=== PATIENT | female | born 1965 | race Caucasian/White ===

== ENCOUNTER 2025-04-09 14:23 | Outpatient (AMB) | payer OTHER, SELFPAY ==
--- NOTE | 2025-04-09 14:50 | A.OFFPC_ITS ---
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 Control Analyst Required: No Accompanied by: Self / Same As Patient Allergies seasonal Allergy (Unknown, Uncoded 01/26/19 00:00) Medication List - Last Reconciled 04/09/25 by Leobardo Leung MD almotriptan malate 6.25 mg orally; amlodipine 5 mg PO DAILY atenolol 25 mg PO DAILY atorvastatin 20 mg PO BEDTIME carbamide peroxide 6.5% (Debrox) 5 drps otic (ears) Q12H 4 days cetirizine 10 mg PO DAILY PRN fluticasone propionate 50 mcg/actuation 2 sprays intranasal BID levothyroxine 100 mcg PO DAILY potassium chloride ER 10 mEq PO DAILY spironolactone 50 mg PO DAILY Tobacco use date assessed: 04/09/25 Dental Screening Dental Screen Date: 04/09/25 Did you have a dental visit in the last 12 months?: Yes Did you have a dental problem in the last 6 months where you did not have access to dental care?: Yes Was dental information given to patient?: Patient has dentist HPI HPI Comments History of Present Illness Details History of Present Illness The patient is a 59 year old female presenting to establish care and request medication refills. Migraine: The patient has a history of migraines for over 10 years, managed with almotriptan. Her migraines are reportedly well-controlled with the medication, and she has never seen a neurologist for this condition. Hypertension: The patient has a history of hypertension, managed with amlodipine 5 mg and atenolol. Previously, she was on hydrochlorothiazide for years, which caused hypokalemia. In August, her diuretic was switched to spironolactone, a potassium- sparing diuretic, and she was also prescribed potassium chloride supplements. Hyperlipidemia: The patient is treated for hyperlipidemia with atorvastatin. Hypothyroidism: She has a history of postsurgical hypothyroidism following a thyroidectomy approximately seven years ago. She is managed with levothyroxine, which she takes at 6:30 AM. Her last TSH level was checked in November. Allergies: The patient treats allergies with cetirizine and fluticasone nasal spray. She also has a known allergy to amoxicillin, which causes a rash. History of Lipomas: The patient has a history of lipomas on her upper arms and lower extremities. She has had three surgical procedures to remove them. Health Maintenance: The patient's last blood work was in November, four months ago. She is scheduled for a mammogram and ultrasound next month. Her last colonoscopy was 10 years ago with no findings, and she is due for another one next year. She recently had a Pap smear. A DEXA scan was recommended by her previous provider in the summer due to her age, but a referral was never sent. Surgical History: - Thyroidectomy (approximately 7 years a go) - Lipoma removal (12 removed ) Medications: - Almotriptan, as needed for migraine he adaches - Amlodipine 5 mg for hypertension - Atenolol for hypertension - Atorvastatin for hypercholesterolemia - Cetirizine for allergies - Fluticasone nasal spray for allergies - Levothyroxine for hypothyroidism - Spironolactone for hypertension - Potassium chloride extended release fo r hypokalemia Social History: - Tobacco use: Denies history of smoking . - Substance use: Denies use of recreatio nal drugs. Family History: - Her daughter is a breast cancer surviv or. Diagnostic Results: - Last blood work was performed in . - Last TSH was checked in November. - Last colonoscopy 10 years ago was collette al. Past Medical History - Migraine, managed with almotriptan for over 10 years. - Hypertension, managed with amlodipine and atenolol. - Hyperlipidemia, managed with atorvasta tin. - Allergic rhinitis, treated with cetiri zine and fluticasone. - Hypothyroidism, secondary to thyroidec ana luisa about 7 years ago, managed with levothyroxine. - History of hypokalemia, previously francisco ated with hydrochlorothiazide, now on spironolactone and potassium chloride. - History of lipomas on upper arms and l ower extremities, with three surgical removals. - Allergy to amoxicillin, causing a rash . Health Maintenance - Breast cancer screening: Patient is sc heduled for a mammogram and ultrasound next month. - Colon cancer screening: Last colonosco py was 10 years ago and was negative; she is due next year. - Cervical cancer screening: Patient rec ently had a Pap smear and is up to date. - Osteoporosis screening: A DEXA scan wa s previously recommended due to her age but was not completed. [facility] Medical History (Updated 04/09/25 @ 19:59 by Leobardo Leung MD) Morbid obesity due to excess calories History of lipoma Allergies Hypothyroid Hyperlipidemia Hypertension Migraine Family History (Updated 04/09/25 @ 15:03 by Patricio Maddox MA) Father Colon cancer Heart disease Mother Metastatic cancer Social History Housing: Condominium Patient Tobacco Use Status: Never used Tobacco service: No Current occupational status: employed Cognitive needs: No Hearing needs: No Vision needs: Yes (reading glasses) Questionnaire PHQ-9 Over the last 2 weeks, how often have you been bothered by any of the following problems? 1. Little interest or pleasure in doing things: not at all 2. Feeling down, depressed, or hopeless: not at all 3. Trouble falling or staying asleep, or sleeping too much: not at all 4. Feeling tired or having little energy: not at all 5. Poor appetite or overeating: not at all 6. Feeling bad about yourself - or that you are a failure or have let yourself or your family down: not at all 7. Trouble concentrating on things, such as reading the newspaper or watching television: not at all 8. Moving or speaking so slowly that other people could have noticed. Or the opposite - being so fidgety or restless that you have been moving around a lot more than usual: not at all 9. Thoughts that you would be better off or of hurting yourself in some way: not at all Total score: 0 Depression Screening Interpretation: Negative Depression Screening Done: Yes Source: Developed by Drs. Alberto Orozco, Linda Cedillo, Josr Carrion and colleagues, with an educational armani from [employer]. Thrive Questionnaire Date Thrive assessed: 04/09/25 I am a: Patient What is your living situation today?: I have a steady place to live Within the past 12 months, did the food you bought not last and you didn't have the money to get more?: Never true Within the past 12 months, did you worry whether your food would run out before you got money to buy more?: Never true Do you have trouble paying for medicines?: No Do you have trouble getting transportation to medical appointments?: No Do you have trouble paying your heating and electricity bill?: No Do you have trouble taking care of your child, family member or friend?: I choose not to answer this question Do you have trouble with day-to-day activities such as bathing, preparing meals, shopping, managing finances, etc.?: No Are you currently unemployed and looking for a job?: No Are you interested in more education?: No Please select the resources that you would like help with: None Currently or been in a relationship where the following occur: No concerns reported THRIVE Score: 0 AUDIT C Alcohol Use Questionnaire (AUDIT-C) 1. How often do you have a drink containing alcohol?: Never Total Score: 0 VALORIE-7 AMB Questionnaire VALORIE-7 Date VALORIE - 7 assessed: 04/09/25 Feeling nervous, anxious, or on edge: 0 = Not at all Not being able to stop or control worryin = Not at all Worrying too much about different things: 0 = Not at all Trouble relaxin = Not at all Being so restless that it is hard to sit still: 0 = Not at all Becoming easily annoyed or irritable: 0 = Not at all Feeling afraid as if something awful might happen: 0 = Not at all Total VALORIE-7 score (0-4 normal; 5-9 mild; 10-14 moderate; 15-21 severe): 0 Source: Developed by Drs. Alberto Orozco, Linda Cedillo, Josr Carrion and colleagues, with an educational armani from [employer]. Review of Systems Narrative Review of Systems - Constitutional: Reports sleeping well and waking up refreshed. - Neurological: Reports history of migraines, which are controlled with medication. - GI: Reports regular daily bowel movements. - : Reports being postmenopausal. Denies pain during abdominal exam. - Musculoskeletal: Denies swelling of her lower legs, but reports it can occur with tight socks. 10-point ROS reviewed and negative except as noted in HPI Physical exam (Primary Care) Vital Signs: Last Vital Signs Temp 98 F 04/09/25 14:53 Pulse 62 04/09/25 14:53 Resp 16 04/09/25 14:53 BP 139/60 04/09/25 14:53 Pulse Ox 98 04/09/25 14:53 Oxygen Delivery Method Room Air 04/09/25 14:53 BMI result Body Mass Index 46.2 Tobacco/Smoking Status: Tobacco use Status Tobacco use date assessed 04/09/25 04/09/25 15:06 Patient Tobacco Use Status Never used Tobacco 04/09/25 15:06 PHQ-9: PHQ-9 Score PHQ-9: Total score 0 04/09/25 16:14 Depression Screening Interpretation: Negative Thrive Assessment: Date of Thrive Assessment Date Thrive assessed 04/09/25 04/09/25 15:06 Currently or been in a relationship where the following occur: No concerns reported Narrative Physical Exam General: Well-appearing, in no acute distress. Vital signs: Within normal limits. HEENT: Normocephalic, atraumatic. PERRLA, EOMI. Conjunctiva clear, sclera anicteric. Oropharynx clear, mucous membranes moist. TMs intact bilaterally, but there is a lot of wax in one ear and a little in the other. Neck: Supple, no lymphadenopathy, no thyromegaly, no JVD or carotid bruits. Cardiovascular: RRR, normal S1/S2, no murmurs, rubs, or gallops. Peripheral pulses 2+ and symmetric. No edema. Respiratory: Lungs clear to auscultation bilaterally, no wheezes, rales, or rhonchi. Normal effort. Abdomen: Soft, non-tender, non-distended. Normoactive bowel sounds. No hepatosplenomegaly, no masses. MSK: Full range of motion, no joint swelling or deformity. Normal gait. Skin: Warm, dry, intact. No rashes, lesions, or pallor. Noted a mole that has been present since and has not changed in size. Neuro: Alert and oriented x3. Cranial nerves II-XII intact. Strength 5/5 throughout. Sensation intact. Reflexes 2+ symmetric. Normal coordination and gait. Psych: Appropriate mood and affect. Normal judgment and insight. Coding Level of Care Code New Pt Level 4 (69760) Add On Problem Visit Only Diagnoses Migraine G43.909 Hypertension I10 Hyperlipidemia E78.5 Hypothyroid E03.9 Allergies T78.40XA History of lipoma Z86.018 Morbid obesity due to excess calories E66.01 Assessment & Plan Assessment & Plan (1) Migraine: Code(s): G43.909 - Migraine, unspecified, not intractable, without status migrainosus Category: Medical (2) Hypertension: Code(s): I10 - Essential (primary) hypertension Category: Medical (3) Hyperlipidemia: Code(s): E78.5 - Hyperlipidemia, unspecified Category: Medical (4) Hypothyroid: Code(s): E03.9 - Hypothyroidism, unspecified Category: Medical (5) Allergies: Code(s): T78.40XA - Allergy, unspecified, initial encounter Category: Medical (6) History of lipoma: Code(s): Z86.018 - Personal history of other benign neoplasm Category: Medical (7) Morbid obesity due to excess calories: Code(s): E66.01 - Morbid (severe) obesity due to excess calories Category: Medical Plan Consent Patient was informed and verbally consented to the use of an ambient scribe for clinic note documentation during this visit. Plan 1. Establishing Care/Medication Management - Will refill amlodipine and other blood pressure medications, excluding spironolactone and potassium until lab results are reviewed. - Levothyroxine refill will be held pending review of TSH results. - Will refill almotriptan for migraines and allergy medications (cetirizine, fluticasone). - Ordered comprehensive baseline blood work, including CBC, CMP, thyroid panel, HbA1c, lipid panel, vitamin B12, folate, vitamin D, hepatitis B, hepatitis C, and a syphilis screen. - Plan to schedule a follow-up appointment in two weeks to discuss lab results. 2. Cerumen Impaction - Prescribed Debrox ear drops to be used twice a day, with five drops in each e ar for five days, to break up cerumen. Discussion Notes I discussed with the patient and her daughter that as a new patient, it is important to establish a baseline of her overall health. I explained that I am ordering comprehensive blood work, including a complete blood count, comprehensive metabolic panel, thyroid panel, HbA1c, lipid panel, and various vitamin and infectious disease screenings. I informed them that I will refill her blood pressure medication (amlodipine) but will hold off on refilling the spironolactone, potassium, and levothyroxine until I can review the new lab results, as it is critical to confirm her current thyroid and electrolyte levels before continuing these medications. We discussed that her maintenance screenings are up to date. I also informed her of the significant wax in her ears and prescribed Debrox drops, instructing her to use five drops in each ear, twice a day for five days. We agreed to a follow-up visit in two weeks to discuss all results. The patient's daughter was instructed that she can reach out via the patient portal for follow-up on the lab results. Patient Instructions - Please go to the lab to have your blood drawn today for the tests that were ordered. - For the wax in your ears, use the Debrox drops that were prescribed. Place 5 drops in your right ear and 5 drops in your left ear, two times per day, for the next five days. - Your prescriptions for amlodipine, almotriptan (for migraine), and allergy medications will be refilled. Do not take spironolactone, potassium, or levothyroxine until we have your lab results. I will send those refills after reviewing your blood tests. - Your daughter can contact our office through the patient portal to follow up on the lab results. - Please schedule a follow-up appointment in two weeks to review your lab results. - Remember to go for your scheduled mammogram and ultrasound next month. Medical Decision Making The patient is a 59-year-old female presenting to [facility] after her previous primary care physician retired. The primary goals of this visit are to address her need for medication refills and to establish a baseline of her current health status, as I do not have access to her prior medical records. Given her multiple chronic conditions including hypertension, hypothyroidism, and hyperlipidemia, and the lack of recent lab data, comprehensive blood work is medically necessary to ensure safe and effective management. The decision to withhold refills for levothyroxine, spironolactone, and potassium is based on the need to verify her TSH and electrolyte levels to prevent potential adverse effects from incorrect dosing, which is a prudent step in the absence of recent lab results. The patient reports her conditions are stable, but objective data is required for confirmation. On physical exam, there is significant bilateral cerumen impaction, which warrants treatment with cerumenolytic drops to improve hearing and allow for future proper examination. The remainder of the physical exam is unremarkable. Her preventative health screenings appear to be mostly up-to-date, though a DEXA scan was mentioned by her previous provider her current Osteoporosis Risk Assessment Instrument.score is less than 9 thus making her a low risk for Osteoporosis at this time. The plan is to review lab results and then finalize medication management, with a follow-up in two weeks to discuss the comprehensive health assessment. Total Time Statement 30 min Total time spent caring for the patient today includes pre-visit chart review, documentation, review of laboratory and diagnostic imaging results, medication reconciliation, medically necessary evaluation, counseling on diagnoses, care coordination, ordering appropriate tests and medications, review of tests performed by other providers, reporting test results to the patient, and communication with other healthcare providers. Orders: Orders Hepatitis C Antibody Today Z13.9 - Encounter for screening, unspecified HIV Ab/Ag Today Z13.9 - Encounter for screening, unspecified UA CC w/rflx Micro + Cult Today Z13.9 - Encounter for screening, unspecified Lipid Panel Today Z13.9 - Encounter for screening, unspecified Vitamin B12 and Folate Today Z13.9 - Encounter for screening, unspecified Magnesium Today Z13.9 - Encounter for screening, unspecified Complete Blood Count Auto Diff Today Z13.9 - Encounter for screening, unspecified Hepatitis B Surface Antigen Today Z13.9 - Encounter for screening, unspecified Syphilis Screen Today Z13.9 - Encounter for screening, unspecified Comprehensive Met. Panel Today Z13.9 - Encounter for screening, unspecified TSH reflex Free T4 Today Z13.9 - Encounter for screening, unspecified Hemoglobin A1c Today Z13.9 - Encounter for screening, unspecified Vitamin D 1,25 dihydroxy Today Z13.9 - Encounter for screening, unspecified Hepatitis B Surface Antibody Today Z13.9 - Encounter for screening, unspecified Vitamin D 25-OH (D2 and D3) Today Z13.9 - Encounter for screening, unspecified Medications: New amlodipine 5 mg PO DAILY 90 tabs 0RF carbamide peroxide 6.5% (Debrox) 5 drps otic (ears) Q12H 15 mL 0RF 4 days almotriptan malate 6.25 mg orally; 30 tabs 0RF atorvastatin 20 mg PO BEDTIME 90 tabs 0RF cetirizine 10 mg PO DAILY PRN 90 tabs 0RF allergy symptoms
[2025-04-09 14:53] VITALS: BP 139/60; PULSE 62; RESP 16; TEMP 36.6; O2SAT 98; BMI 46.2
== END 2025-04-09 15:57 | disposition home or self-care (01) ==
PROVIDERS: PCP Student in an Organized Health Care Education/Training Program; Visit Provider Student in an Organized Health Care Education/Training Program
DX: G43.909 Migraine, unspecified, not intractable, without status migrainosus (principal); I10 Essential (primary) hypertension; E78.5 Hyperlipidemia, unspecified; E03.9 Hypothyroidism, unspecified; T78.40XA Allergy, unspecified, initial encounter; Z86.018 Personal history of other benign neoplasm; E66.01 Morbid (severe) obesity due to excess calories

== ENCOUNTER 2025-04-09 14:23 | Outpatient (REF) | payer OTHER, SELFPAY ==
[2025-04-09 18:19] LABS: MANUAL DIFF FLAG NO
[2025-04-09 18:20] LABS: Appearance Urine Turbid; Glucose Urine UA Negative (Negative); PH 5.0 (5.0-9.0); Specific Gravity - Urine 1.020 (1.005-1.025); UMIC TRIGGER UACC YES
[2025-04-09 18:27] LABS: UACC Culture Trigger YES
[2025-04-09 18:29] LABS: Hematocrit 45.5 % (37.0-47.0); Hemoglobin 15.3 g/dl (12.0-16.0); Imm Gran Abs Auto 0.03 X10*3/uL (0.00-0.03); Imm Gran Pct Auto 0.3 % (0.0-0.4); Lymphocytes Absolute Auto 2.2 X10*3/uL (1.2-4.9); Mean Corpuscular HGB Conc 33.6 g/dl (31.0-35.0); Mean Corpuscular Hemoglobin 32.1 pg (27.0-33.0); Mean Corpuscular Volume 95.4 fL (80.0-98.0); NRBC Abs Auto 0.000 X10*3/uL (0.0-0.012); NRBC Pct Auto 0.0 /100WBC (0.0-0.2); Platelet Count 229 X10*3/uL (160-400); Red Blood Count 4.77 X10*6/uL (4.20-5.50); White Blood Count 10.9 X10*3/uL (4.8-10.8)
[2025-04-09 18:52] LABS: Alanine Aminotransferase 12 U/L (0-31); Albumin Level 4.9 g/dL (3.5-5.0); Alkaline Phosphatase 65 U/L (39-117); Anion Gap 12 (12-20); Aspartate Amino Transferase 32 U/L (5-31); Blood Urea Nitrogen 22 mg/dL (9-16); Calcium 9.6 mg/dL (8.4-10.2); Carbon Dioxide 24 mmol/L (22-29); Chloride 109 mmol/L (96-108); Cholesterol 160 mg/dL (<200); Estimated Glomerular Filt Rate > 60; HDL Cholesterol 56 mg/dL (>40); Magnesium 2.1 mg/dL (1.6-2.6); Potassium 4.1 mmol/L (3.3-5.1); Sodium 141 mmol/L (135-145); Total Protein 7.7 g/dL (6.5-8.0); Triglycerides 130 mg/dL (<150)
[2025-04-09 19:44] LABS: Folate 6.3 ng/mL (> or = 4.0); Vitamin B12 330 pg/mL (200-900)
[2025-04-10 04:25] LABS: Syphilis Screen Nonreactive (Nonreactive)
[2025-04-10 05:22] LABS: HBS Num1 176.38 mIU/mL (0-7.99); HBsAGNum1 0.46 S/CO (0.00-0.99); HIV Num 1 0.06 S/CO (0.00-0.99); Hepatitis B Surface Antigen Negative (Negative); ~HepC Num1 0.15 S/CO (0.00-0.79); ~Hepatitis B Surface Antibody REACTIVE (Nonreactive); ~Hepatitis C Antibody Nonreactive (Nonreactive)
[2025-04-13 06:34] LABS: Vitamin D 25-OH, D2 18 ng/mL; Vitamin D 25-OH, D3 10 ng/mL; Vitamin D 25-OH, Total 28 ng/mL (30-100)
[2025-04-13 16:29] LABS: VITAMIN D (1,25 OH) D3 13 pg/mL; Vit D (1,25-Dihydroxy) Total 39 pg/mL (18-72); Vitamin D (1,25 OH) D2 26 pg/mL
== END 2025-04-09 14:24 | disposition home or self-care (01) ==
LOC: HO.HKASLDS 14:23
PROVIDERS: PCP Student in an Organized Health Care Education/Training Program; Visit Provider Student in an Organized Health Care Education/Training Program
DX: G43.909 Migraine, unspecified, not intractable, without status migrainosus (principal); Z13.9 Encounter for screening, unspecified; I10 Essential (primary) hypertension; E78.5 Hyperlipidemia, unspecified; E03.9 Hypothyroidism, unspecified; E66.01 Morbid (severe) obesity due to excess calories; T78.40XA Allergy, unspecified, initial encounter; Z68.42 Body mass index [BMI] 45.0-49.9, adult
CPT/HCPCS: 36415; 80053; 80061; 81001; 82306; 82607; 82652; 82746; 83036; 83735; 84443; 85025; 86706; 86780; 86803; 87086; 87340; 87389

== ENCOUNTER 2025-04-17 14:19 | Outpatient (AMB) | payer OTHER, SELFPAY ==
--- NOTE | 2025-04-17 14:23 | AM.OFFWIN_ITS ---
Intake Vital Signs 04/17/25 14:24 Height 5 ft 3.78 in Weight 235 lb BMI 40.6 BP 136/67 Blood Pressure Location Lt brachial Position Sitting Respiration 16 Pulse 73 Pulse Source Pulse Oximeter Temp 97.9 F Temp Source Oral Pulse Oximetry (%) 98 Oxygen Delivery Method Room Air Intake Visit Reasons: EP- ?URI Intake Note: EP has Cough, runny nose, fever, sneezing, shoulder joint pain started last Wednesday and she got pain over the maxilla and frontal sinuses and sore throat since Wednesday. Patient Tobacco Use Status: Never used Tobacco Allergies amoxicillin Allergy (Intermediate, Verified 04/17/25 14:36) rash seasonal Allergy (Mild, Uncoded 04/17/25 14:36) Sneezing Do you need a note to return to daycare/school/sports/work: No HPI HPI Comments History of Present Illness Details History of Present Illness The patient is a 59 year old female with a past medical history of hyperlipidemia, hypertension, hypothyroidism presenting with worsening upper respiratory symptoms. - The patient reports becoming ill great er than one week ago - Her symptoms include cough, sneezing, runny nose, low-grade fever up to 100?F, and joint pain - She initially treated her symptoms wit h [id number] Robitussin, Tylenol, and ibuprofen. - After feeling better on Wednesday, her symptoms worsened on Wednesday with new onset sneezing and facial pain over her cheeks. - Current symptoms include discolored na abi discharge, a dry cough, and a scratchy sensation in her throat. - She denies any nausea, vomiting, or di arrhea. - She denies any shortness of breath - The patient reports a sensation of marion ffed ears with popping when she swallows, sneezes, or yawns. - The patient reports an allergy to amox icillin. Review of Systems - Constitutional: Reports a low-grade fe miranda up to 100?F. - HEENT: Reports stuffed ears, popping s ensation in ears on swallowing or yawning, discolored nasal discharge, sneezing, runny nose, and facial pain over the cheeks. Reports a dry and scratchy throat. Denies ear pain or typical sore throat. - Respiratory: Reports a bothersome dry cough. Denies shortness of breath - Cardaic: Denies cheast pain - Gastrointestinal: Denies nausea, vomit ing, or diarrhea. - Musculoskeletal: Reports myalgias Physical Exam General Appearance: Normal appearance, well developed. No acute distress HEENT: Normocephalic, atraumatic. External ears normal. Moderate ear wax noted in left ear canal. Middle ear effusions note bilaterally. Clear nasal discharge present with tenderness over the maxillary sinus bilaterally. Oropharynx clear without erythema or exudate. No cervical lymphadenopathy palpated. Cardiac: Regular rate and rhythm. No murmurs. Pulmonary: No respiratory distress. Clear to auscultation bilaterally. Musculoskeletal: Moving all extremities spontaneously and against gravity. Mental Status: Alert and Oriented x 3 Psychiatric: Normal mood. Normal affect. [facility] Medical History (Updated 04/09/25 @ 19:59 by Leobardo Leung MD) Morbid obesity due to excess calories History of lipoma Allergies Hypothyroid Hyperlipidemia Hypertension Migraine Family History (Updated 04/09/25 @ 15:03 by Patricio Maddox MA) Father Colon cancer Heart disease Mother Metastatic cancer Social History Housing: Condominium Patient Tobacco Use Status: Never used Tobacco service: No Current occupational status: employed Cognitive needs: No Hearing needs: No Vision needs: Yes (reading glasses) Physical Exam Vital Signs: Last Vital Signs Temp 97.9 F 04/17/25 14:24 Pulse 73 04/17/25 14:24 Resp 16 04/17/25 14:24 BP 136/67 04/17/25 14:24 Pulse Ox 98 04/17/25 14:24 Oxygen Delivery Method Room Air 04/17/25 14:24 BMI result Body Mass Index 40.6 Assessment & Plan Assessment & Plan (1) Acute rhinosinusitis: Code(s): J01.90 - Acute sinusitis, unspecified Plan - Due to patient's symptoms > 1 week, history of symptoms initially improving and then worsening, combined with nasal drainage, and maxillary sinus tenderness, will treat for bacterial sinus infection. - Low suspicion for pneumonia given clear lungs to auscultation, afebrile, and patient saturating well--no indication for CXR. - A prescription for doxycycline will be sent to the pharmacy to be taken twice a day for 5 days. - Patient was recently prescribed Flonase by her PCP. She has not yet started the medication. She was advised to start the medication as it may help with middle ear effusions. - She may continue robitussin - Patient advised to avoid direct sunlight while taking medication and to sit up for 30 minutes post administration of medication. Advised to avoid taking antacids, multivitamis, and supplements containing iron, calcium, Mg, or zinc within 2 hour of taking Doxycycline. - The patient was instructed to seek further care if she develops new high fevers, shortness of breath, or chest pain. Patient was informed and verbally consented to the use of an ambient scribe for clinic note documentation during the visit. Medications: New doxycycline hyclate 100 mg PO BID 10 tabs 0RF Coding Level of Care Code Est Pt Level 3 (89812) Diagnoses Acute rhinosinusitis J01.90
[2025-04-17 14:24] VITALS: BP 136/67; PULSE 73; RESP 16; TEMP 36.6; O2SAT 98; BMI 40.6
== END 2025-04-17 15:00 | disposition home or self-care (01) ==
LOC: HO.HMCWIS 14:19
PROVIDERS: PCP Student in an Organized Health Care Education/Training Program; Visit Provider Family Medicine
DX: J01.90 Acute sinusitis, unspecified (principal)

== ENCOUNTER → 2025-04-17 14:19 | Outpatient (BNVA) | payer OTHER, SELFPAY | PROVIDERS: PCP Student in an Organized Health Care Education/Training Program; Visit Provider Family Medicine | DX: J01.90 Acute sinusitis, unspecified (principal) | CPT/HCPCS: 99212 ==